=== PATIENT | male | born 1975 | race Caucasian/White ===

== ENCOUNTER 2018-05-07 16:45 | Emergency (ER) | payer MEDICARE, SELFPAY ==
[2018-05-07] MEDS ORDERED: Adacel (T-DAP) 0.5 ML VIAL ONE (17:14)
[2018-05-07] MEDS ORDERED: Sulfameth/Trimethoprim DS 800-160mg TAB ONE (17:29)
== END 2018-05-07 17:30 | disposition home or self-care (01) ==
LOC: BURERS 16:45
DX: L03.313 Cellulitis of chest wall (principal); I10 Essential (primary) hypertension; I25.2 Old myocardial infarction; E11.9 Type 2 diabetes mellitus without complications; E78.5 Hyperlipidemia, unspecified; Z86.73 Personal history of transient ischemic attack (TIA), and cerebral infarction without residual deficits; F31.9 Bipolar disorder, unspecified
CPT/HCPCS: 10060; 87070; 87077; 87186; 87205; 90471; 90715

== ENCOUNTER 2018-07-02 11:53 | Emergency (ER) | payer SELFPAY ==
--- NOTE | 2018-07-02 13:12 | RAD ---
THREE VIEWS LEFT SHOULDER: Comparison: None. History: Left shoulder pain after fall. FINDINGS: Three views of the left shoulder shows no evidence of acute fracture or dislocation. No degenerative changes are seen. No soft tissue swelling is present. IMPRESSION: Unremarkable exam. POS: [facility]
== END 2018-07-02 12:31 | disposition home or self-care (01) ==
LOC: BURERS 11:53
DX: S43.402A Unspecified sprain of left shoulder joint, initial encounter (principal); I10 Essential (primary) hypertension; F31.9 Bipolar disorder, unspecified; Z79.899 Other long term (current) drug therapy; Z79.891 Long term (current) use of opiate analgesic; Z79.82 Long term (current) use of aspirin; Z79.4 Long term (current) use of insulin; W17.89XA Other fall from one level to another, initial encounter